=== PATIENT | female | born 1985 | race African-American/Black ===

== ENCOUNTER 2019-06-14 15:33 | Observation (INO) | payer OTHER ==
[~2019-06-14] VITALS: Ht 162.6 cm; Wt 93.4 kg
--- NOTE | 2019-06-14 15:33 | NUR ---
ARRIVES VIA STRETCHER WITH EMS AND [facility] X1. PT C/O EPIGASTRIC DISCOMFORT WORSE WITH PALPATION. DENIES N/V/D , DENIES SOB
--- NOTE | 2019-06-14 15:45 | NUR ---
MONITORS ASSESSED, IV INITIATED AND OBSERVING PT. STATES PAIN IS 8/10. VSS
--- NOTE | 2019-06-14 16:05 | NUR ---
initiated iv and labs drawn. updated pt on poc and wait time. skin warma dn dry. no acute distress noted
[2019-06-14 16:18] LABS: HEMATOCRIT 37.2 % (37.0-47.0); HEMOGLOBIN 11.4 g/dl (12.0-16.0); IMMATURE GRANULOCYTES 0.2 % (0.0-5.0); MEAN CELL VOLUME 79.1 fL CALC (80.0-100.0); MEAN CORPUSCULAR HGB 24.3 pG CALC (26.0-32.0); MEAN CORPUSCULAR HGB CONC 30.6 g/L CALC (32.0-36.0); NEUT# 7.17 thou/uL (2.00-7.15); RED BLOOD COUNT 4.7 mill/uL (4.20-5.60); RED CELL DISTRI WIDTH 19.1 % (11.5-15.5)
[2019-06-14 16:30] LABS: URINE BILIRUBIN - DIPSTICK NEGATIVE (NEGATIVE); URINE BLOOD DIPSTICK NEGATIVE (NEGATIVE); URINE COLOR YELLOW; URINE GLUCOSE - DIPSTICK NEGATIVE (NEGATIVE); URINE KETONE NEGATIVE (NEGATIVE); URINE LEUK ESTERASE TRACE (NEGATIVE); URINE NITRITE - DIPSTICK NEGATIVE (Negative); URINE PH 6.5 (4.5-8.0); URINE PROTEIN - DIPSTICK NEGATIVE (NEG-TRACE); URINE SPECIFIC GRAVITY <=1.005; URINE UROBILINOGEN - DIPSTICK 0.2 E.U./dL (0.2)
[2019-06-14 16:38] LABS: ALBUMIN 4.4 g/dL (3.2-5.0); ALKALINE PHOSPHATASE 103 u/l (38-126); ANION GAP 16 (6-22 (CALC)); BILIRUBIN, TOTAL 0.9 mg/dL (0.0-1.4); BUN 6 mg/dL (7-17); BUN/CREATININE RATIO 9 (12-20 (CALC)); CARBON DIOXIDE 21 mmol/l (22-30); CHLORIDE 105 mmol/l (95-108); CREATININE 0.7 mg/dL (0.5-1.0); GFR > 60 ML/MIN (>=60 (CALC)); GFR FOR AFR.AMER. > 60 ML/MIN (>=60 (CALC)); LIPASE 289 u/l (23-300); POTASSIUM 4.6 mmol/l (3.5-5.1); SGOT/AST 114 u/l (14-36); SODIUM 138 mmol/l (137-146); TOTAL PROTEIN 8.6 g/dL (6.3-8.2)
--- NOTE | 2019-06-14 17:23 | NUR ---
pt returned from radiology via [facility] in no distress. monitors reassessed. guard continues at [facility]
--- NOTE | 2019-06-14 18:23 | NUR ---
pt agreeable to iv abt ptt declines admit at this time. edp discusssed risk v benefits.pt adament that she does not wish to be admitted
--- NOTE | 2019-06-14 18:55 | NUR ---
edp again at bedside, pt agreeable to admit and surgical consult
--- NOTE | 2019-06-14 19:01 | NUR ---
RECEIVED REPORT. PT HAS DECIDED TO BE ADMITTED. SITTING QUIETLY. NO DISTRESS NOTED. ANTIBIOTIC STARTED RX
--- NOTE | 2019-06-14 19:50 | NUR ---
CHANGED TO GOWN. AWAITING ADMISSION ORDERS FOR ADMISSION
--- NOTE | 2019-06-14 20:18 | NUR ---
REPORT CALLED TO EVELYN PRESCOTT
--- NOTE | 2019-06-14 20:21 | NUR ---
TO MS VIA W/C
[2019-06-14 20:30] VITALS: BP 130/89
--- NOTE | 2019-06-14 21:00 | NUR ---
PATIENT ADMITTED FROM ER VIA WHEELCHAIR WITH ER STAFF AND [facility] IN ATTENDANCE. PATIENT IS AWAKE ALERT AND ORIENTEDX3. PATIENT IS ABLE TO AMB TO BED WITH STEADY. PATIENT WITH BOTH LE SHACKELED TO BED. PATIENT WITH NO COMPLAINTS AT THIS TIME. DENIES ANY PAIN OR NAUSEA. ADMITTED FOR CHOLECYSTITIS. WILL BE NPO AFTER MIDNIGHT FOR HIDA SCAN IN AM. IVF LR HUNG AND INFUSING VIA LEFT AC SITE-SITE IS HEALTHY AT THIS TIME. LUNGS ARE CLEAR. ABD IS SOFT WITH ACTIVE BS. NO PERIPHERAL EDEMA AND PULSES ARE PALPABLE. PATIENT PROVIDED WITH SANDWICH AND DRINK. PATIENT ORIENTED TO ROOM AND SURROUNDINGS. INSTRUCTED PATIENT ON USE ON NURSE CALL LIGHT SYSTEM, TV REMOTE AND PHONE. SAFETY PRECAUTIONS REVIEWED WITH PATIENT. CALL LIGHT IN REACH. [facility] REMAINS AT BEDSIDE. WILL CONT TO MONITOR
[2019-06-15] VITALS (11 sets, daily range): BP systolic 98–138; BP diastolic 74–89
--- NOTE | 2019-06-15 00:23 | NUR ---
PATIENT APPEARS SLEEPING POSITIONED ON SIDE WITH EYES CLOSED. RESP ARE EVEN AND UNLABORED. NPO AT THIS TIME. [facility] REMAINS AT BEDSIDE AND PATIENT REMAINS SHACKELED TO BED. IVF PATENT AND INFUSING LEFT AC ORDERED. CALL LIGHT IN REACH. WILL CONT TO MONITOR.
--- NOTE | 2019-06-15 04:21 | NUR ---
RESTING IN BED AT THIS TIME-SHACKELED TO BED. L[facility]IA AT BEDSIDE. NPO FOR TESTING THIS MORNING. NO COMPLAINTS AT THIS ITME. IVF PATENT ANDINFSUING LAC SITE ORDERED. CALL LIGHT IN REACH. WILL CONT TO MONITOR.
--- NOTE | 2019-06-15 07:59 | NUR ---
PT IS RESTING IN BED. ASSESSMENT DONE. PT IS A&O X3. PT DENIES PAIN AT THIS TIME. RESPS EVEN AND UNLABORED. PT SHACKELED TO BED AND ATTENDACE IN ROOM. PT DENIES NEEDS AT THIS TIME. PT NPO. IVF INFUSING WELL. CALL LIGHT IN REACH.
--- NOTE | 2019-06-15 11:58 | NUR ---
PT WENT TO OR VIA STRETCHER BY [facility] AND [facility] AT SIDE.
--- NOTE | 2019-06-15 14:15 | NUR ---
PT CAME FROM OR VIA STRETCHER BY [facility]. PT AMBULATED TO THE BATHROOM AND VOIDED. PT HAS X4 ABD INCISION CDI. IVF INFUSING WELL. SCD IN PLACE. CALL LIGHT IN REACH.
--- NOTE | 2019-06-15 16:18 | NUR ---
PT STATED PAIN IN ABD 04/08. ASSISTED PT TO THE BATHROOM PT VOIDED. MEDICATED PT WITH OXYCODONE. EDUCATED PT HOW TO USE THE I.S. CALL LIGHT IN REACH. ATTENDACE IN ROOM.
--- NOTE | 2019-06-15 19:00 | NUR ---
REPORT FROM [facility]. PT RESTING IN BED. NO APPARENT DISTRESS NOTED. DENIES ANY PAIN AT THIS TIME. X4 ABD INCISIONS CLOSED WITH DERMABOND, CDI. ABD DISTENDED WITH HYPOACTIVE BOWEL SOUNDS. PT DENIES ANY NAUSEA OR VOMITING. NO APPARETN DISTRESS NOTED. X1 GUARD AT BEDSIDE, PT SHACKLED BY LEFT ANKLE TO BED. IV SITE APPEARS HEALTHY WITH IV FLUIDS INFUSING. DISCUSSED POC. PT VERBALIZED UNDERSTANDING. CALL LIGHT WITHIN REACH. WILL CONTINUE TO MONITOR.
--- NOTE | 2019-06-15 20:24 | NUR ---
PT MEDICATED FOR ABD PAIN 08/09. ENCOURAGED REPOSITIONING FOR COMFORT. JUICE AND WATER PROVIDED AT THIS TIME. NO OTHER WANTS OR NEEDS. X1 GUARD REMAINS AT BEDSIDE. WILL CONTINUE TO MONITOR.
--- NOTE | 2019-06-16 00:20 | NUR ---
PT RESTING IN BED. WAKES EASILY. NO APPARENT DISTRESS NOTED. PT DENIES ANY PAIN OR DISCOMFORT. IV ABT INFUSING WITHOUT S/S OF ADVERSE REACTION NOTED. PT DENIES ANY CURRENT WANTS OR NEEDS. CALL LIGHT WITHIN REACH. X1 GUARD REMAINS AT BEDSIDE, SHACKLED TO BED BY LEFT ANKLE. SCDS IN PLACE. WILL CONTINUE TO MONITOR.
[2019-06-16 03:48] VITALS: BP 132/88
--- NOTE | 2019-06-16 04:23 | NUR ---
PT RESTING IN BED WITH EYES CLOSED. X1 GUARD REMAINS AT BEDSIDE. NO APPARENT DISTRESS NOTED. CALL LIGHT WITHIN REACH. WILL CONTINUE TO MONITOR.
[2019-06-16 07:17] VITALS: BP 136/75
--- NOTE | 2019-06-16 08:05 | NUR ---
ASSESSMENT DONE. PT IS A&O X3. PT DENIES PAIN AT THIS TIME. X4 ABD INCISIONS CDI. SCD PLACE. PT BEEN USING THE I.S. IVF INFUSING WELL. PO FLUIDS PROVIDED. PT DENIES ANY OTHER NEEDS AT THIS TIME. CALL LIGHT IN REACH.
[2019-06-16] MEDS ORDERED: KETOROLAC15 MG/ML PO (08:43)
[2019-06-16 11:29] VITALS: BP 116/50; BP 138/88
--- NOTE | 2019-06-16 12:04 | NUR ---
MEDICATED PT WITH ZOFRAN AND TORADOL FOR PAIN/NAUSEA. PT DENIES ANY OTHER NEEDS AT THIS TIME. X1 GUARD IN ROOM. CALL LIGHT IN REACH.
--- NOTE | 2019-06-16 14:06 | NUR ---
Discharge instructions given. Patient verbalizes understanding of same. Discharged in stable condition via Wheelchair to *Other with staff. All belongings sent with pt. REPORT GIVEN TO
== END 2019-06-16 14:06 | DRG 419 ==
LOC: ED 15:33 → ED-I 16:27 → ED 18:58 → MS2 18:59
PROVIDERS: Family Medicine; ADMIT Surgery; ATTEND Surgery
PROC: 0FT44ZZ Resection of Gallbladder, Percutaneous Endoscopic Approach (ICD-10-PCS; principal; 2019-06-15)
DX: K80.00 Calculus of gallbladder with acute cholecystitis without obstruction (principal); K42.9 Umbilical hernia without obstruction or gangrene
CPT/HCPCS: A9537; G0378; J0131; J2710; J2805; Q9967